=== PATIENT | female | born 1990 | race African-American/Black ===

== ENCOUNTER 2019-09-26 08:57 | Emergency (ER) | payer SELFPAY ==
[~2019-09-26] VITALS: Ht 172.7 cm; Wt 87.3 kg
[~2019-09-26 08:57] MED LIST: PREDNISONE20 MG PO; TRIAMCINOLONE A15 GM TP
[2019-09-26 09:00] VITALS: TEMP 99.8
[2019-09-26 10:19] LABS: COLLECTION METHOD CLEAN CATCH
[2019-09-26 10:23] LABS: BASO % 0.2 % (0.0-2.0); EOS # 0.1 (0.0-0.7); EOS % 1.6 % (0-4.0); GRAN % 69.6 % (42.2-75.2); HEMOGLOBIN 10.8 g/dl (12.5-16.0); LYMPH # 0.8 (1.2-3.4); LYMPH % 18.8 % (20.0-51.0); MEAN CELL VOLUME 83 fl (80.0-100.0); MEAN CORPUSCULAR HEMOGLOBIN 27 pg (27.0-31.0); MEAN CORPUSCULAR HGB CONC 32 g/dl (33.0-37.0); MEAN PLATELET VOLUME 10.8 fl (7.4-10.4); MONO # 0.4 (0.1-0.6); MONO % 9.6 % (1.7-9.3); PLATELET COUNT 216 K/mm3 (130-400); RED BLOOD COUNT 4.05 M/mm3 (4.10-5.30); REDCELL DISTRIBUTION WIDTH-CV 14.6 % (11.5-14.5)
[2019-09-26 10:32] LABS: ALBUMIN 3.9 gm/dL (3.5-5.0); BILIRUBIN,TOTAL 0.2 mg/dL (0.0-1.0); CALCIUM 9.5 mg/dL (8.4-10.2); CREATININE, serum 0.52 (0.52-1.25); POTASSIUM 3.9 mmol/L (3.4-5.0); TOTAL PROTEIN 7.4 gm/dL (6.4-8.2)
[2019-09-26 10:34] LABS: HEMATOCRIT 33.4 % (37.0-47.0)
[2019-09-26 10:34] LABS: STREP SCREEN NEGATIVE
[2019-09-26 10:38] LABS: MUCOUS Present /lpf; PH 7 (5-8); URINE APPEARANCE Hazy; URINE BACTERIA Rare /hpf; URINE BILIRUBIN Negative (NEGATIVE); URINE BLOOD Negative (NEGATIVE); URINE COLOR Yellow; URINE GLUCOSE Negative (NEGATIVE); URINE KETONE Negative (NEGATIVE); URINE LEUKOCYTE ESTERASE Negative (NEGATIVE); URINE NITRATE Negative (NEGATIVE); URINE PROTEIN(semi-quant) Negative (NEGATIVE); URINE RBC 0-2 /hpf
[2019-09-26] MEDS ORDERED: PRENATAL TABLET PO (12:06)
[2019-09-26] MEDS ORDERED: PHENERGAN 25 TA25 MG PO (12:06)
[2019-09-26] MEDS ORDERED: MACROBID 1100 MG/CAP PO (12:06)
[2019-09-26 12:45] VITALS: BP 122/76; PULSE 78
== END 2019-09-26 11:10 | disposition home or self-care (01) ==
LOC: COL.ER 08:57 → EDBD 08:57 → COL.ER 11:10
PROVIDERS: Emergency Medicine
DX: O99.511 Diseases of the respiratory system complicating pregnancy, first trimester (principal); O23.41 Unspecified infection of urinary tract in pregnancy, first trimester; J45.909 Unspecified asthma, uncomplicated; J06.9 Acute upper respiratory infection, unspecified; R82.71 Bacteriuria; Z3A.12 12 weeks gestation of pregnancy; Z98.890 Other specified postprocedural states
CPT/HCPCS: J1100; J7030

== ENCOUNTER 2020-02-04 23:10 | Outpatient (CLI) | payer MEDICAID ==
[~2020-02-04] VITALS: Ht 175.3 cm; Wt 105.9 kg
[~2020-02-04 23:10] MED LIST changes: +MACROBID 1100 MG/CAP PO; +PHENERGAN 25 TA25 MG PO; +PRENATAL TABLET PO
[2020-02-05] VITALS: BP 129/75; PULSE 84; TEMP 98.6
--- NOTE | 2020-02-05 | NUR ---
2330- Patient ambulatory to LR5 with spouse. Patient oriented to room. Patient into restroom to change into clean gown. 2340- EFM and TOCO on and tracing. Patient has complaints of leaking of clear fluid starting at 1900 after urinating. Patient states "it was all over the floor". Patient reports good movement. Patient denies bleeding, spotting, or recent intercourse. Patient reports infrequent [place]-Figueredo contractions and a dull backache. 2345- Amniotest negative. 2349- See Physician Notification. 0002- EFM and TOCO off. Discharge instructions discussed. Patient encouraged to keep all upcoming OB appointments and perform daily kick counts. 0010- Patient ambulatory off unit with spouse.
== END 2020-02-05 00:10 | disposition home or self-care (01) ==
LOC: LDRO 23:10
DX: Z34.93 Encounter for supervision of normal pregnancy, unspecified, third trimester (principal); Z3A.30 30 weeks gestation of pregnancy

== ENCOUNTER 2020-04-04 07:07 | Inpatient (IN) | payer MEDICAID ==
[~2020-04-04] VITALS: Ht 172.8 cm; Wt 112.7 kg
[2020-04-04] VITALS (18 sets, daily range): BP systolic 107–149; BP diastolic 62–99; PULSE 66–90; TEMP 97.8–98.5
--- NOTE | 2020-04-04 07:15 | NUR ---
Patient ambulates to 210 with spouse, changed into clean gown, FHR/TOCO monitors placed and explained. Patient denies any regular strong contractions/leaking of fluid/vaginal bleeding/decreased movement. Plan of care discussed. IV started in left hand, blood obtained and to lab, LR infusing. Consents gone over and signed/ packet and given/assessment completed. Plan of care discussed. Questions answered.
[2020-04-04 08:15] LABS: MEAN CELL VOLUME 79 fl (80.0-100.0); MEAN CORPUSCULAR HGB CONC 30 g/dl (33.0-37.0); MEAN PLATELET VOLUME 11.1 fl (7.4-10.4); PLATELET COUNT 146 K/mm3 (130-400); RED BLOOD COUNT 3.61 M/mm3 (4.10-5.30); REDCELL DISTRIBUTION WIDTH-CV 15.9 % (11.5-14.5)
[2020-04-04 08:17] LABS: HEMATOCRIT 28.5 % (37.0-47.0); HEMOGLOBIN 8.5 g/dl (12.5-16.0); MEAN CORPUSCULAR HEMOGLOBIN 24 pg (27.0-31.0)
[2020-04-04 10:48] LABS: LYMPHOCYTE 22 % (20.0-51.0); NEUTROPHILS 73 % (42.0-75.2); PLATELET ESTIMATE NORMAL (NORMAL)
--- NOTE | 2020-04-04 12:45 | NUR ---
Peicare done and abdominal placed and patient tolerates well.
--- NOTE | 2020-04-04 14:15 | NUR ---
Patient dangles feet off edge of bed, ambulates to bathroom and siegel catheter removed and patient tolerates well. Pericare done, new gown and underwear on.
[2020-04-05 03:35] VITALS: BP 118/62; PULSE 66; TEMP 97.8
[2020-04-05 09:30] VITALS: BP 122/62; PULSE 75; TEMP 97.5
[2020-04-05 16:55] VITALS: BP 131/72; PULSE 77; TEMP 98.4
[2020-04-05] MEDS ORDERED: IBU600 MG PO (19:20)
[2020-04-05] MEDS ORDERED: PERCOCET 325 MG1 TA2 PO (19:21)
[2020-04-05 20:00] VITALS: BP 119/62; PULSE 73; TEMP 98.2
[2020-04-06 09:17] VITALS: BP 124/72; PULSE 88; TEMP 98
[2020-04-06 16:17] VITALS: BP 119/83; PULSE 92; TEMP 98.1
[2020-04-06 19:15] VITALS: BP 133/80; PULSE 90; TEMP 98.6
[2020-04-07 07:30] VITALS: BP 141/86; PULSE 78; TEMP 98.3
== END 2020-04-07 13:25 | disposition home or self-care (01) | DRG 788 ==
LOC: OB 07:07 → LDR 07:14 → OB 04-07 13:25
PROVIDERS: ADMIT Obstetrics & Gynecology
PROC: 10D00Z1 Extraction of Products of Conception, Low, Open Approach (ICD-10-PCS; principal; 2020-04-04)
DX: O34.211 Maternal care for low transverse scar from previous cesarean delivery (principal); Z3A.39 39 weeks gestation of pregnancy; Z37.0 Single live birth; O99.02 Anemia complicating childbirth; J45.909 Unspecified asthma, uncomplicated; O99.52 Diseases of the respiratory system complicating childbirth
CPT/HCPCS: J0690; J1885; J2370; J2405; J2590; J3010; J7120

== ENCOUNTER 2020-07-17 14:31 | Emergency (ER) | payer MEDICAID ==
[~2020-07-17] VITALS: Ht 175.3 cm; Wt 109.1 kg
[~2020-07-17 14:31] MED LIST changes: +IBU600 MG PO; +PERCOCET 325 MG1 TA2 PO
[2020-07-17] MEDS ORDERED: NORCO 325 MG-51 TAB PO ×2 (15:36→15:37)
[2020-07-17 15:49] VITALS: BP 141/93; PULSE 65; TEMP 98.6
== END 2020-07-17 16:25 | disposition home or self-care (01) ==
LOC: COL.ER 14:31
DX: S43.004A Unspecified dislocation of right shoulder joint, initial encounter (principal); X50.0XXA Overexertion from strenuous movement or load, initial encounter; Y92.89 Other specified places as the place of occurrence of the external cause
CPT/HCPCS: J2250; J2704; J3010; Q4050

== ENCOUNTER 2021-07-25 17:07 | Emergency (ER) | payer MEDICAID ==
[~2021-07-25] VITALS: Ht 175.3 cm; Wt 100.5 kg
[~2021-07-25 17:07] MED LIST changes: +NORCO 325 MG-51 TAB PO
[2021-07-25 17:15] VITALS: TEMP 98.9
[2021-07-25] MEDS ORDERED: ZOFRAN ODT4 MG PO (19:42)
[2021-07-25 20:04] LABS: COLLECTION METHOD CLEAN CATCH
[2021-07-25 20:11] LABS: MUCOUS Present /lpf; PH 6 (5-8); URINE APPEARANCE Hazy; URINE BACTERIA None Seen /hpf; URINE BILIRUBIN Negative (NEGATIVE); URINE BLOOD Negative (NEGATIVE); URINE COLOR Yellow; URINE GLUCOSE Negative (NEGATIVE); URINE KETONE 1+ (NEGATIVE); URINE LEUKOCYTE ESTERASE Negative (NEGATIVE); URINE NITRATE Negative (NEGATIVE); URINE PROTEIN(semi-quant) 1+ (NEGATIVE); URINE RBC 0-2 /hpf; URINE UROBILINOGEN >=4.0 mg/dL (NEGATIVE)
[2021-07-25 20:50] VITALS: BP 116/93; PULSE 82
== END 2021-07-25 20:50 | disposition home or self-care (01) ==
LOC: COL.ER 17:07
PROVIDERS: Physician Assistant
DX: U07.1 COVID-19 (principal); J45.909 Unspecified asthma, uncomplicated
CPT/HCPCS: J2405; J7030